=== PATIENT | female | born 1985 | race Caucasian/White ===

== ENCOUNTER 2017-09-03 18:59 | Emergency (ER) | payer BC ==
[~2017-09-03] VITALS: Ht 157.5 cm; Wt 87.3 kg
[2017-09-03 19:37] VITALS: BP 131/76
--- NOTE | 2017-09-03 19:46 | NUR ---
PATIENT AMBULATED TO ER BED 12
--- NOTE | 2017-09-03 20:20 | NUR ---
PT AOX4 AMB, FAMILY @ BEDSIDE. PT HAS HX OF PARA 3 4. LMP 06/18/17. PT STATES SHE IS 10 WKS . PT C/O OF BLOOD IN URINE. PT DENIES PAIN @ THIS TIME. NO S/S OF DISTRESS NOTED. WILL COTINUE TO OBSERVE.
--- NOTE | 2017-09-03 20:24 | NUR ---
ULTRASOUND AT BEDSIDE
[2017-09-03 20:25] LABS: BASOPHILS # (AUTO) 0.4 K/uL (0.00-0.22); EOSINOPHILS # (AUTO) 0.2 K/uL (0-0.4); HEMATOCRIT 42.9 % (36-48); HEMOGLOBIN 14.2 g/dL (12.0-16.0); LYMPHOCYTES # (AUTO) 2.4 K/uL (2.5-16.5); MEAN CORPUSCULAR HEMOGLOBIN 32 pg (27-31); MEAN CORPUSCULAR HGB CONC 33 g/dL (33-37); MEAN CORPUSCULAR VOLUME 96 fL (80-94); MONOCYTES # (AUTO) 0.7 K/uL (0.8-1.0); NEUTROPHILS # (AUTO) 7.1 K/uL (1.8-7.7); PLATELET COUNT (AUTO) 302 K/uL (140-450); RED BLOOD CELL COUNT(AUTO) 4.46 MIL/uL (4.20-5.40); RED CELL DISTRIBUTION WIDTH 11.3 % (11.6-13.7); WHITE BLOOD COUNT (AUTO) 10.8 K/uL (4.8-10.8)
[2017-09-03 20:33] LABS: ANION GAP 15.9 (8-16); CARBON DIOXIDE 21.7 mmol/L (21-32); CREATININE 0.7 mg/dL (0.6-1.3); POTASSIUM 3.6 mmol/L (3.5-5.1)
[2017-09-03 20:38] LABS: ALBUMIN 3.8 g/dL (3.4-5.0); TOTAL BILIRUBIN 0.2 mg/dL (0.0-1.0)
--- NOTE | 2017-09-03 22:45 | NUR ---
IV removed, catheter intact and site benign. Applied folded 4x4 gauze and tape to stop bleeding.
[2017-09-03 22:58] VITALS: BP 125/70
--- NOTE | 2017-09-03 22:59 | NUR ---
Patient discharged with v/s stable per Dr. Werner. Written and verbal after care instructions given and explained by Dr. Werner. Patient verbalized understanding. Ambulatory with steady gait. All questions addressed prior to discharge. Advised to follow up with PMD.
== END 2017-09-03 22:45 | disposition home or self-care (01) ==
LOC: MED 18:59
DX: O46.91 Antepartum hemorrhage, unspecified, first trimester (principal); Z3A.10 10 weeks gestation of pregnancy
CPT/HCPCS: 36415; 76817; 80053; 81025; 84702; 85025; 86900; 86901; 99285; Q0092

== ENCOUNTER 2019-08-30 10:50 | Inpatient (IN) | payer BC ==
[~2019-08-30] VITALS: Ht 157.5 cm; Wt 98.9 kg
[2019-08-30] MEDS ORDERED: PREN-380 PO (11:31)
[2019-08-30] MEDS ORDERED: LACTATED RINGERS 1,000 ML IV SCH (11:31)
[2019-08-30] MEDS ORDERED: PROMETHAZINE 25 MG/ML VIAL IVP PRN (11:35)
[2019-08-30] MEDS ORDERED: METHYLERGONOVINE 0.2 MG/ML AMP IM PRN ×2 (11:35→17:05)
[2019-08-30] MEDS ORDERED: OXYTOCIN 20 UNITS in LACTATED RINGERS 1,000 ML IV SCH (11:35)
[2019-08-30] MEDS ORDERED: CARBOPROST 250 MCG/ML AMP IM PRN (11:35)
[2019-08-30] MEDS ORDERED: INFLUENZA VACCINE QUAD 0.5 ML SYR IMVAC PRN (11:55)
[2019-08-30 11:57] VITALS: BP 114/64
[2019-08-30 12:20] LABS: BASOPHILS % (AUTO) 0.3 % (0.0-2.0); EOSINOPHILS # (AUTO) 0.1 K/uL (0-0.4); HEMATOCRIT 35.3 % (36-48); HEMOGLOBIN 11.7 g/dL (12.0-16.0); LYMPHOCYTES # (AUTO) 1.6 K/uL (2.5-16.5); MEAN CORPUSCULAR HEMOGLOBIN 32 pg (27-31); MEAN CORPUSCULAR HGB CONC 33 g/dL (33-37); MEAN CORPUSCULAR VOLUME 96.8 fL (80-94); MONOCYTES # (AUTO) 0.7 K/uL (0.8-1.0); NEUTROPHILS # (AUTO) 6.4 K/uL (1.8-7.7); NEUTROPHILS % (AUTO) 72.7 % (42.2-75.2); PLATELET COUNT (AUTO) 201 K/uL (140-450); RED BLOOD CELL COUNT(AUTO) 3.65 MIL/uL (4.20-5.40); RED CELL DISTRIBUTION WIDTH 13.9 % (11.6-13.7); WHITE BLOOD COUNT (AUTO) 8.8 K/uL (4.8-10.8)
[2019-08-30 12:57] LABS: APPEARANCE,URINE CLEAR (CLEAR); BILIRUBIN,URINE NEGATIVE (NEGATIVE); BLOOD, URINE NEGATIVE (NEGATIVE); COLOR,URINE YELLOW (YELLOW); LEUKOCYTE ESTERASE ,URINE NEGATIVE (NEGATIVE); NITRITE, URINE NEGATIVE (NEGATIVE); PH,URINE 5.5 (5.0-9.0); UGLUCOSE NEGATIVE (NEGATIVE)
[2019-08-30] MEDS ORDERED: OXYTOCIN 20 UNITS/LR PREMIX 1,000 ML IV ONE (13:30)
[2019-08-30] MEDS ORDERED: MORPHINE SULFATE 10 MG/ML VIAL IVP PRN (14:40)
[2019-08-30] MEDS ORDERED: MORPHINE SULFATE 10 MG/ML VIAL ONE (14:42)
[2019-08-30 14:51] VITALS: BP 118/62
--- NOTE | 2019-08-30 15:10 | NUR ---
PATIENT HAS BEEN SCREENED AND CATEGORIZED LOW NUTRITION RISK. PATIENT WILL BE SEEN WITHIN 7 DAYS OF ADMISSION. 09/05/[address]
[2019-08-30] MEDS ORDERED: LIDOCAINE MPF 1% 10 MG/ML VIAL INJ SCH (17:00)
[2019-08-30] MEDS ORDERED: OXYTOCIN 10 UNITS/ML VIAL IM PRN (17:05)
[2019-08-30] MEDS ORDERED: HYDROcodone/APAP 5/325 MG 1 TAB TAB PO PRN (17:05)
[2019-08-30] MEDS ORDERED: MEASLES, MUMPS, AND RUBELLA 1 VIAL SQVAC PRN (17:05)
[2019-08-30] MEDS ORDERED: oxyCODONE/APAP 5/325 MG 1 TAB TAB PO PRN (17:05)
[2019-08-30] MEDS ORDERED: BENZOCAINE/MENTHOL 20%-0.5% 60 GM CAN TP PRN (17:05)
[2019-08-30] MEDS ORDERED: TEMAZEPAM 15 MG CAP PO PRN (17:05)
[2019-08-30] MEDS ORDERED: LIDOCAINE 1% 500 MG/50 ML VIAL ONE (17:20)
[2019-08-30] MEDS ORDERED: DOCUSATE SOD/SENNA 50/8.6 MG 1 TAB PO SCH (21:00)
[2019-08-30] MEDS ORDERED: SENNA 8.6 MG TAB PO SCH (21:00)
[2019-08-31 06:37] LABS: HEMATOCRIT 34.7 % (36-48); HEMOGLOBIN 11.3 g/dL (12.0-16.0)
[2019-09-01] MEDS ORDERED: IBUP-2213 PO (10:05)
[2019-09-01] MEDS ORDERED: FERR325E14 PO (10:06)
== END 2019-09-01 12:15 | disposition home or self-care (01) | DRG 807 ==
LOC: MLD 10:50 → MFCC 19:41
PROVIDERS: ADMIT Obstetrics & Gynecology; ATTEND Obstetrics & Gynecology
PROC: 10E0XZZ Delivery of Products of Conception, External Approach (ICD-10-PCS; principal; 2019-08-30)
PROC: 10907ZC Drainage of Amniotic Fluid, Therapeutic from Products of Conception, Via Natural or Artificial Opening (ICD-10-PCS; 2019-08-30)
PROC: 3E02340 Introduction of Influenza Vaccine into Muscle, Percutaneous Approach (ICD-10-PCS; 2019-08-31)
PROC: 3E0234Z Introduction of Serum, Toxoid and Vaccine into Muscle, Percutaneous Approach (ICD-10-PCS; 2019-08-31)
DX: O80 Encounter for full-term uncomplicated delivery (principal); Z37.0 Single live birth; Z3A.38 38 weeks gestation of pregnancy; Z23 Encounter for immunization
CPT/HCPCS: 36415; 59409; 81003; 85018; 85025; 86592; 86886; 86900; 86901; 90715; J2001; J2270; J2550; J2590; J7120

== ENCOUNTER 2019-09-19 19:20 | Inpatient (IN) | payer BC ==
[~2019-09-19] VITALS: Ht 157.5 cm; Wt 90.7 kg
[2019-09-19] MEDS: NACL 0.9% 1,000 ML IV SCH (00:15)
[~2019-09-19 19:20] MED LIST: FERR325E14 PO; IBUP-2213 PO; PREN-380 PO
[2019-09-19 19:30] VITALS: BP 127/78
--- NOTE | 2019-09-19 19:33 | NUR ---
TO LOBBY A/W BED AMBULATORY
--- NOTE | 2019-09-19 20:28 | NUR ---
PATIENT AMB TO BED 06
--- NOTE | 2019-09-19 20:45 | NUR ---
FIRST CONTACT WITH PT. SITTING UP ON EDGE OF BED WITH SITTING NEARBY. REPORTS 10/10 EPIGASTRIC PAIN WITH N/V FOR 2 DAYS. PT PLACED IN GOWN, PLACED ON MONITOR. BREATHING EVEN, UNLABORED. SKIN NORMAL FOR ETHNICITY, DRY, WARM. PT REPORTS GIVING IN AUGUST. PMH-- DENIES RX-- DENIES
[2019-09-19] MEDS ORDERED: ONDANSETRON 4 MG/2 ML VIAL IVP ONE (20:50)
[2019-09-19] MEDS ORDERED: MORPHINE SULFATE 4 MG/ML SYR IVP ONE (20:50)
[2019-09-19 21:27] LABS: BASOPHILS % (AUTO) 0.3 % (0.0-2.0); EOSINOPHILS # (AUTO) 0.1 K/uL (0-0.4); EOSINOPHILS % (AUTO) 0.4 % (0.0-4.0); HEMATOCRIT 43.3 % (36-48); HEMOGLOBIN 14.6 g/dL (12.0-16.0); LYMPHOCYTES # (AUTO) 0.9 K/uL (2.5-16.5); LYMPHOCYTES % (AUTO) 7.1 % (20.5-51.1); MEAN CORPUSCULAR HEMOGLOBIN 32 pg (27-31); MEAN CORPUSCULAR HGB CONC 34 g/dL (33-37); MEAN CORPUSCULAR VOLUME 93.5 fL (80-94); MONOCYTES # (AUTO) 0.7 K/uL (0.8-1.0); NEUTROPHILS # (AUTO) 11.5 K/uL (1.8-7.7); NEUTROPHILS % (AUTO) 87.2 % (42.2-75.2); PLATELET COUNT (AUTO) 274 K/uL (140-450); RED BLOOD CELL COUNT(AUTO) 4.63 MIL/uL (4.20-5.40); RED CELL DISTRIBUTION WIDTH 13.5 % (11.6-13.7); WHITE BLOOD COUNT (AUTO) 13.2 K/uL (4.8-10.8)
--- NOTE | 2019-09-19 21:35 | NUR ---
US AT BEDSIDE.
[2019-09-19 21:41] LABS: ALBUMIN 3.7 g/dL (3.4-5.0); ANION GAP 12.6 (8-16); CREATININE 0.6 mg/dL (0.6-1.3); POTASSIUM 3.6 mmol/L (3.5-5.1); TOTAL BILIRUBIN 3.4 mg/dL (0.0-1.0)
[2019-09-19 21:44] LABS: APPEARANCE,URINE CLOUDY (CLEAR); BILIRUBIN,URINE 2+ (NEGATIVE); BLOOD, URINE 3+ (NEGATIVE); COLOR,URINE YELLOW (YELLOW); LEUKOCYTE ESTERASE ,URINE 3+ (NEGATIVE); NITRITE, URINE NEGATIVE (NEGATIVE); UGLUCOSE NEGATIVE (NEGATIVE)
[2019-09-19 22:04] LABS: RBC,URINE 50-80 /HPF (0-5); WBC,URINE 20-60 /HPF (0-5)
[2019-09-19] MEDS ORDERED: DOCUSATE SODIUM 100 MG GELCAP PO PRN (22:15)
[2019-09-19] MEDS ORDERED: ONDANSETRON 4 MG/2 ML VIAL IM/IVP PRN (22:15)
[2019-09-19] MEDS ORDERED: ACETAMINOPHEN 325 MG TAB PO PRN (22:15)
[2019-09-19 22:37] LABS: BARBITURATE, URINE NEG. ng/ml (NEG <=200); BENZODIAZEPINE, URINE NEG. ng/mL (NEG <=200); CANNABINOID, URINE NEG. ng/mL (NEG <=50); COCAINE, URINE NEG. ng/mL (NEG <=300); OPIATE, URINE NEG. ng/mL (NEG <=2000); PHENCYCLIDINE SCREEN,URINE NEG. ng/mL (NEG <=25)
--- NOTE | 2019-09-19 22:38 | NUR ---
Patient will be admitted to care of Dr. Rodriguez. Admited to MS. Will go to room 119B. Belongings list completed. Report to JADA Villalobos.
--- NOTE | 2019-09-19 22:38 | NUR ---
RECEIVED BEDSIDE REPORT FROM ED RN PATRICIA, FOR PT'S CONTINUITY OF CARE. PT IS AAOX4, SCOTTISH SPEAKING, AMBULATORY, IS ON ROOM AIR, HAS LEFT HAND 22G SALINE LOCK, STATES ABD PAIN 3/10, SKIN IS INTACT. EXPLAINED TO PT THE CAN PUSHER ROUTINE, PT VERBALIZED UNDERSTANDING. SAFETY MEASURES IN PLACE, AND CALL LIGHT IS WITHIN REACH. WILL MONITOR PT THROUGHOUT SHIFT.
[2019-09-19 22:45] LABS: PROTHROMBIN TIME 9.8 secs (10.8-13.4)
[2019-09-19 22:49] LABS: FREE T4 (FREE THYROXINE) 1.16 ng/dL (0.76-1.46); MAGNESIUM 2.1 mg/dL (1.8-2.4); PHOSPHORUS 3.6 mg/dL (2.5-4.9); THYROID STIMULATING HORMONE 0.41 uIU/mL (0.34-3.74)
[2019-09-19 23:00] VITALS: BP 122/73
[2019-09-19] MEDS ORDERED: PIPERACILLIN/TAZOBACTAM 3.375 GM VIAL IV ONE (23:56)
[2019-09-20] VITALS (7 sets, daily range): BP systolic 105–122; BP diastolic 54–73
--- NOTE | 2019-09-20 00:15 | NUR ---
ADMINISTERED SCHEDULED IV ABX AND IVF ORDERED. PT REQUESTED FOR MEDICATION TO HELP WITH CONSTIPATION, ADMINISTERED PRN PO COLACE ORDERED. PT TOLERATED IT WELL. PT LYING COMFORTABLE IN BED. WILL CONTINUE TO MONITOR PT.
[2019-09-20] MEDS: PIPERACILLIN/TAZOBACTAM 3.375 GM in DEXTROSE 5% 50 ML IV SCH ×5 (00:21→23:57)
[2019-09-20] MEDS ORDERED: MORPHINE SULFATE 2 MG/ML SYR IVP PRN (00:30)
--- NOTE | 2019-09-20 00:43 | NUR ---
PT C/O ABD PAIN 01/23, ADMINISTERED PRN IVP PAIN MEDICATION ORDERED. PT TEACHING GIVEN, PT VERBALIZED UNDERSTANDING. WILL CONTINUE TO MONITOR PT.
--- NOTE | 2019-09-20 02:50 | NUR ---
MADE ROUNDS. PT ASLEEP WITH NO SIGNS OF DISTRESS. WILL CONTINUE TO MONITOR PT.
[2019-09-20] MEDS: NACL 0.9% 1,000 ML IV SCH (03:12)
--- NOTE | 2019-09-20 04:00 | NUR ---
VS CHECKED AND CHARTED. PT WOKE UP, STATES PAIN IS AT TOLERABLE LEVEL. WILL CONTINUE TO MONITOR PT.
[2019-09-20] MEDS ORDERED: PIPERACILLIN/TAZOBACTAM 3.375 GM VIAL IV ONE (05:13)
--- NOTE | 2019-09-20 05:26 | NUR ---
ADMINISTERED SCHEDULED IV ABX ORDERED. PT STATES PAIN IS AT TOLERABLE LEVEL. PT DENIES ANY OTHER NEEDS. WILL CONTINUE TO MONITOR PT.
[2019-09-20 06:33] LABS: BASOPHILS % (AUTO) 0.2 % (0.0-2.0); EOSINOPHILS % (AUTO) 0.2 % (0.0-4.0); HEMATOCRIT 41.9 % (36-48); HEMOGLOBIN 13.8 g/dL (12.0-16.0); LYMPHOCYTES # (AUTO) 1.4 K/uL (2.5-16.5); MEAN CORPUSCULAR HEMOGLOBIN 32 pg (27-31); MEAN CORPUSCULAR HGB CONC 33 g/dL (33-37); MONOCYTES # (AUTO) 0.4 K/uL (0.8-1.0); MONOCYTES % (AUTO) 5.1 % (1.7-9.3); NEUTROPHILS # (AUTO) 6.2 K/uL (1.8-7.7); NEUTROPHILS % (AUTO) 77.5 % (42.2-75.2); PLATELET COUNT (AUTO) 286 K/uL (140-450); RED BLOOD CELL COUNT(AUTO) 4.32 MIL/uL (4.20-5.40); RED CELL DISTRIBUTION WIDTH 13.6 % (11.6-13.7)
[2019-09-20] MEDS: DEXT 5% /NACL 0.9% 1,000 ML IV SCH ×2 (06:51→13:19)
--- NOTE | 2019-09-20 06:51 | NUR ---
ADMINISTERED SCHEDULED IVF ORDERED. PT LYING DOWN COMFORTABLY, DENIES ANY PAIN AT THIS TIME. WILL ENDORSE TO AM SHIFT RN FOR PT'S CONTINUITY OF CARE.
[2019-09-20 06:58] LABS: ALBUMIN 3.2 g/dL (3.4-5.0); ANION GAP 11.2 (8-16); CARBON DIOXIDE 27.4 mmol/L (21-32); CREATININE 0.6 mg/dL (0.6-1.3); POTASSIUM 3.6 mmol/L (3.5-5.1); TOTAL BILIRUBIN 3.1 mg/dL (0.0-1.0)
[2019-09-20 07:01] LABS: AMYLASE 1117 U/L (25-115); LIPASE 5524 U/L (73-393)
[2019-09-20 07:03] LABS: CHOL/HDL RATIO 4.4 (1-4.5)
--- NOTE | 2019-09-20 07:20 | NUR ---
RECEIVED BEDSIDE REPORT FROM STATION MECHANIC NURSE. PT IS ASLEEP, NO S/S OF DISTRESS NOTED. ON ROOM AIR, SKIN IS INTACT. IV SITE L HAND 22 G INFUSING D5NS 150 ML/HR. PT IS NPO EXCEPT MEDS. SURGICAL CONSULT WITH DR YEE IS PENDING. CALL LIGHT IS WITHIN REACH. WILL CONTINUE TO MONITOR.
[2019-09-20] MEDS ORDERED: DOCUSATE SODIUM 100 MG GELCAP PO SCH (09:00)
--- NOTE | 2019-09-20 10:10 | NUR ---
AM MED ADMINISTERED, PT TOLERATED WELL. NO S/S OF DISTRESS OR C/O PAIN NOTED.
--- NOTE | 2019-09-20 13:48 | NUR ---
PT LYING IN BED COMFORTABLY, REPORTS MINIMAL ABD PAIN, DOES NOT WANT ANY PAIN MEDICINE AT THIS TIME. CONTINUING TO MONITOR.
--- NOTE | 2019-09-20 14:19 | NUR ---
DC PLANNING RECEIVED A CALL FROM [facility] DEWEY CAMEJO [phone] DISCUSSED PATIENT'S CONDITION AND NOTIFIED PT IS STABLE TO BE TRANSFERRED. PROVIDE RESIDENTS' CELL PHONE AND FAXED ALL THE UPDATE CLINICALS TO [phone] . CM PROVIDE THE AUTH # [id number] FOR [facility]SP[facility] TO PUT IT WILL CALL. CM WILL CALL BACK WHEN BED AVAILABLE. Addendum: 09/20/19 at 1533 by Lynda Howard CM DC PLANNING: DR GALINDO IN THE UNIT TO PERFORM ERCP CALLED INSURANCE AND NOTIFIED PER JET DEWEY AT [facility] NOT TO PERFORM ERCP BECAUSE SHE IS WORKING ON TRANSFERRING TO [facility] CALLED [facility] AND PLACED IT WILL CALL.
--- NOTE | 2019-09-20 14:20 | NUR ---
PT SEEN BY DR GALINDO. DR GALINDO EXPLAINED NEED FOR ERCP TO THE PT. PT VERBALIZED UNDERSTANDING.
[2019-09-20] MEDS ORDERED: LACTATED RINGERS 1,000 ML IV SCH (14:35)
--- NOTE | 2019-09-20 14:44 | NUR ---
OBTAINED CONSENT FOR ERCP. PUBLIC RELATIONS WRITER ID# [id number]
--- NOTE | 2019-09-20 14:53 | NUR ---
GOT A CALL FROM [employer] [facility], PER PT'S INSURANCE PT HAS TO GET TRANSFERRED TO A CONTRACTED FACILITY, AND CANNOT HAVE ERCP HERE. Addendum: 09/20/19 at 1456 by Katelyn German RN DR GALINDO IS AWARE
--- NOTE | 2019-09-20 16:12 | NUR ---
PATIENT HAS BEEN SCREENED AND CATEGORIZED LOW NUTRITION RISK. PATIENT WILL BE SEEN WITHIN 7 DAYS OF ADMISSION. 09/26/[address]
--- NOTE | 2019-09-20 18:05 | NUR ---
PT PLACED ON REGULAR DIET AND IVF DC'D, SHE NO LONGER WILL HAVE ERCP. IV ZOSYN INFUSING PER MD ORDER. PT IS COMFORTABLE AND NOT C/O ANY PAIN. STILL WAITING FOR A CALL FROM [facility] REGARDING PT'S TRANSFER.
--- NOTE | 2019-09-20 19:30 | NUR ---
RECEIVED BEDSIDE REPORT FROM AM SHIFT RN FOR PT'S CONTINUITY OF CARE. PT IS AAOX4, AMBULATOR, ON ROOM AIR, ON SATELLITE SPECIALIST, HAS LEFT HAND 22G SALINE LOC, DENIES PAIN AT THIS TIME. EXPLAINED TO PT THE PRESS SET UP PERSON ROUTINE, PT VERBALIZED UNDERSTANDING. SAFETY MEASURES IN PLACE AND CALL LIGHT IS WITHIN REACH. WILL MONITOR PT THROUGHOUT SHIFT.
--- NOTE | 2019-09-20 19:40 | NUR ---
ENDORSED PT TO CHINESE TEACHER NURSE IN STABLE CONDITION
--- NOTE | 2019-09-20 20:00 | NUR ---
BOW MAKER CALLED [facility] FOR BED STATUS FOR PT'S DISCHARGE PER INSURANCE REQUEST. [facility] HAS BED DESIGNATED FOR HER. WILL VERIFY WITH CM.
--- NOTE | 2019-09-20 20:30 | NUR ---
PER DEWEY WADDELL, BED IS AVAILABLE, CALL [facility] FOR TRANSPORTATION, TRANSPORTATION ALREADY BEEN ARRANGED. WILL CALL [facility] TO GIVE REPORT TO RN.
--- NOTE | 2019-09-20 20:50 | NUR ---
RECEIVED A CALL FROM [facility]HAN, FROM ALLIED TRANSFER. BED AVAILABLE FOR PT. PHONE NUMBER TO CALL [phone], BED [id number].
--- NOTE | 2019-09-20 21:00 | NUR ---
REPORT GIVEN TO JADA MILLS FROM [facility] FOR PT'S CONTINUITY OF CARE PER INSURANCE'S REQUEST. PT IS GOING TO BE TRANSFERRED VIA [facility]SP[facility]
--- NOTE | 2019-09-20 21:10 | NUR ---
EDM OPERATOR CALLED FOR [facility]SPORTATION, ETA GIVEN: 1 HR AND A HALF. WILL INFORM PT.
--- NOTE | 2019-09-20 22:56 | NUR ---
CALLED [facility] FOR UPDATE, PER [facility], WILL BE 2 HRS LATE. WILL INFORM RECEIVING RN.
--- NOTE | 2019-09-20 23:57 | NUR ---
ADMINISTERED SCHEDULED IV ABX ORDERED. PT TEACHING GIVEN, PT VERBALIZED UNDERSTANDING. INFORMED RECEIVING RN FOR PT'S ETA. VS CHECKED AND CHARTED. WILL CONTINUE TO MONITOR PT.
--- NOTE | 2019-09-21 00:20 | NUR ---
REPORT GIVEN TO [facility] TRANSPORTATION PERSONNEL. VS CHECKED AND CHARTED. PT IN STABLE CONDITION.
[2019-09-21 11:05] LABS: LACTATE DEHYDROGENASE 313 IU/L (0-214)
== END 2019-09-21 00:20 | disposition short-term general hospital (02) | DRG 776 ==
LOC: MED 19:20 → MTU 22:17
PROVIDERS: ADMIT General Practice; ATTEND General Practice
DX: O99.63 Diseases of the digestive system complicating the puerperium (principal); K85.10 Biliary acute pancreatitis without necrosis or infection; O86.20 Urinary tract infection following delivery, unspecified; O99.215 Obesity complicating the puerperium; E66.01 Morbid (severe) obesity due to excess calories; E78.5 Hyperlipidemia, unspecified; O99.285 Endocrine, nutritional and metabolic diseases complicating the puerperium; K80.20 Calculus of gallbladder without cholecystitis without obstruction
CPT/HCPCS: 36415; 71045; 76705; 80053; 80305; 81001; 81025; 82150; 83036; 83625; 83690; 83735; 83880; 84100; 84134; 84439; 84443; 84484; 85025; 85610; 85730; 87040; 87081; 87086; 87186; 96374; 96375; 99285; J2270; J2405; J2543; J7030; J7042; J7060; J7120; Q0092

== ENCOUNTER 2021-07-12 09:08 | Inpatient (IN) | payer BC, SELFPAY ==
[~2021-07-12] VITALS: Ht 157.5 cm; Wt 102.1 kg
[~2021-07-12 09:08] MED LIST changes: -PREN-380 PO
[2021-07-12] MEDS ORDERED: PROMETHAZINE 25 MG/ML VIAL IVP PRN (09:10)
[2021-07-12] MEDS ORDERED: NALBUPHINE 10 MG/ML AMP IVP PRN (09:10)
[2021-07-12] MEDS ORDERED: OXYTOCIN 20 UNITS in LACTATED RINGERS 1,000 ML IV SCH (09:15)
[2021-07-12 09:22] VITALS: BP 127/71
[2021-07-12] MEDS: LACTATED RINGERS 1,000 ML IV SCH ×2 (09:43→17:21)
[2021-07-12 10:12] LABS: BASOPHILS % (AUTO) 0.4 % (0.0-2.0); EOSINOPHILS # (AUTO) 0.1 K/uL (0-0.4); EOSINOPHILS % (AUTO) 0.6 % (0.0-4.0); HEMATOCRIT 38.9 % (36-48); HEMOGLOBIN 13.5 g/dL (12.0-16.0); LYMPHOCYTES # (AUTO) 1.7 K/uL (2.5-16.5); LYMPHOCYTES % (AUTO) 18.6 % (20.5-51.1); MEAN CORPUSCULAR HEMOGLOBIN 34 pg (27-31); MEAN CORPUSCULAR HGB CONC 35 g/dL (33-37); MEAN CORPUSCULAR VOLUME 98.5 fL (80-94); MONOCYTES # (AUTO) 0.7 K/uL (0.8-1.0); MONOCYTES % (AUTO) 7.4 % (1.7-9.3); NEUTROPHILS # (AUTO) 6.6 K/uL (1.8-7.7); PLATELET COUNT (AUTO) 201 K/uL (140-450); RED BLOOD CELL COUNT(AUTO) 3.95 MIL/uL (4.20-5.40); RED CELL DISTRIBUTION WIDTH 13.2 % (11.6-13.7); WHITE BLOOD COUNT (AUTO) 9.1 K/uL (4.8-10.8)
[2021-07-12 10:28] LABS: ALBUMIN 2.6 g/dL (3.4-5.0); ANION GAP 12.6 (8-16); CARBON DIOXIDE 23.1 mmol/L (21-32); CREATININE 0.5 mg/dL (0.6-1.3); POTASSIUM 3.7 mmol/L (3.5-5.1); TOTAL BILIRUBIN 0.2 mg/dL (0.0-1.0)
[2021-07-12] MEDS ORDERED: OXYTOCIN 20 UNITS/LR PREMIX 1,000 ML IV ONE (10:33)
[2021-07-12 11:14] LABS: APPEARANCE,URINE HAZY (CLEAR); BILIRUBIN,URINE NEGATIVE (NEGATIVE); BLOOD, URINE TRACE-I (NEGATIVE); COLOR,URINE YELLOW (YELLOW); LEUKOCYTE ESTERASE ,URINE 2+ (NEGATIVE); NITRITE, URINE NEGATIVE (NEGATIVE); PH,URINE 6.5 (5.0-9.0); UGLUCOSE NEGATIVE (NEGATIVE)
[2021-07-12 11:24] LABS: RBC,URINE 0-5 /HPF (0-5)
[2021-07-12 11:27] LABS: YEAST,URINE Rare /HPF (None Seen)
--- NOTE | 2021-07-12 15:44 | NUR ---
PATIENT HAS BEEN SCREENED AND CATEGORIZED LOW NUTRITION RISK. PATIENT WILL BE SEEN WITHIN 7 DAYS OF ADMISSION. 07/18/[address]
[2021-07-12] MEDS ORDERED: LIDOCAINE 1% 500 MG/50 ML VIAL ONE (17:29)
[2021-07-12] MEDS ORDERED: IBUPROFEN 800 MG TAB PO PRN (17:55)
[2021-07-12] MEDS ORDERED: TEMAZEPAM 15 MG CAP PO PRN (17:55)
[2021-07-12] MEDS ORDERED: oxyCODONE/APAP 5/325 MG 1 TAB TAB PO PRN ×2 (17:55)
[2021-07-12] MEDS ORDERED: METHYLERGONOVINE 0.2 MG/ML AMP IM PRN (17:55)
[2021-07-12] MEDS ORDERED: BENZOCAINE/MENTHOL 20%-0.5% 60 GM CAN TP PRN (17:55)
[2021-07-12] MEDS ORDERED: METHYLERGONOVINE 0.2 MG TAB PO PRN (17:55)
[2021-07-12] MEDS ORDERED: OXYTOCIN 10 UNITS/ML VIAL IM PRN (17:55)
[2021-07-12] MEDS ORDERED: LIDOCAINE MPF 1% 10 MG/ML VIAL INJ SCH (19:30)
[2021-07-12] MEDS ORDERED: DOCUSATE SOD/SENNA 50/8.6 MG 1 TAB PO SCH (21:00)
[2021-07-12] MEDS ORDERED: FLU VACCINE QS2021-22 0.5 ML SYR IMVAC ONE (22:30)
[2021-07-13 18:25] LABS: HEMATOCRIT 40.9 % (36-48); HEMOGLOBIN 14.2 g/dL (12.0-16.0)
== END 2021-07-14 11:20 | disposition home or self-care (01) | DRG 807 ==
LOC: MFCC 09:08 → UNDOADMOB 09:08 → MFCC 09:10 → OBSVTOIN 10:00 → INTOOBSV 10:00 → MFCC 19:45
PROVIDERS: ADMIT Obstetrics & Gynecology; ATTEND Obstetrics & Gynecology
PROC: 10E0XZZ Delivery of Products of Conception, External Approach (ICD-10-PCS; principal; 2021-07-12)
DX: O24.429 Gestational diabetes mellitus in childbirth, unspecified control (principal); Z37.0 Single live birth; Z20.822 Contact with and (suspected) exposure to COVID-19; Z3A.39 39 weeks gestation of pregnancy
CPT/HCPCS: 36415; 80053; 81001; 85018; 85025; 86592; 86886; 86900; 86901; 87086; 90715; G0378; J2001; J2590